=== PATIENT | female | born 1995 | race Caucasian/White ===

== ENCOUNTER 2017-02-24 11:38 | Emergency (ER) | payer SELFPAY ==
[2017-02-24 11:54] VITALS: BP 141/99
[2017-02-24 12:42] LABS: Hematocrit 39.8 % (37.0-47.0); Hemoglobin 13.5 gm/dL (12.5-16.0); Mean Cell Volume 87.5 fl (78-100); Mean Corpuscular Hemoglobin 29.7 pg (27-31); Mean Corpuscular Hgb Conc 33.9 g/dl (32-36); Mean Platelet Volume 10.7 fl (6.0-9.5); Neutrophil # 4.5 K/mm3 (1.3-6.0); Neutrophil % 68.3 % (42-75.0); Platelet Count 237 K/mm3 (150-450); Red Blood Count 4.55 M/mm3 (4.2-5.4); White Blood Count 6.5 K/mm3 (4.0-10.5)
[2017-02-24 13:10] LABS: ALT 18 U/L (19-67); AST 20 U/L (0-48); Albumin * 4.1 gm/dl (3.4-5.0); Alkaline Phosphatase * 61 U/L (50-170); Anion Gap 13.9 mmol/L (6.8-13.8); BUN/Creatinine Ratio 15.2 (9.0-21.6); Bilirubin, Total 0.8 mg/dL (0.0-1.1); Blood Urea Nitrogen 12 mg/dL (3-23); Calcium * 9.4 mg/dL (7.9-10.9); Carbon Dioxide 25.7 mmol/L (24-32.6); Chloride 101 mmol/L (97-106); Glucose * 82 mg/dL (70-110); Potassium 3.6 mmol/L (3.4-4.6); Salicylate Less than 2.8 mg/dL (2.8-20.0); Sodium 137 mmol/L (132-142); TSH * 1.596 uIU/mL (0.358-3.74); Total Protein 8.1 gm/dL (6.2-8.2)
[2017-02-24 13:14] LABS: Urine Bilirubin Negative (NEGATIVE); Urine Blood Negative /ul (NEGATIVE); Urine Ketone Large mg/dL (NEGATIVE); Urine Nitrite Negative (NEGATIVE); Urine Protein Negative (NEGATIVE); Urine Specific Gravity 1.015 SP.GR. (1.005-1.010); Urine Urobilinogen Normal (NORMAL)
[2017-02-24 13:24] LABS: Cocaine Ur Negative (NEGATIVE); Urine Appearance Clear; Urine Bacteria None Seen; Urine Barbiturate Negative (NEGATIVE); Urine Color Yellow; Urine Opiates Negative (NEGATIVE); Urine PCP Negative (NEGATIVE); Urine RBC None Seen /hpf (0-5); Urine WBC None Seen /hpf (0-5)
[2017-02-24 13:26] LABS: Urine Benzodiazepines Positive (NEGATIVE); Urine THC Positive (NEGATIVE)
--- OUTSIDE RECORDS SUMMARY | 2017-02-24 13:29 | XMS REPORT | Continuity of Care Document ---
:1995 Author Organization [facility] ([facility]) [place] [address] Phone [phone] Care Team Providers Name Role Phone Raquel Helmsan Primary Care Provider [phone] Source Comments This disclosure is being made pursuant to the Care Everywhere program, applicable federal and state laws, and may not contain all informaitonavailable regarding this patient.[facility] ([facility]) Active Allergies and Adverse Reactions No Known Allergies Current Medications No known medications Active Problems Not on file Social History Tobacco Use Types Packs/Day Years Used Date Never Smoker Smokeless Tobacco: Never Used Last Filed Vital Signs Vital Sign Reading Time Taken Blood Pressure 122/62 12/28/2012 2:45 PM CDT Pulse 92 12/28/2012 2:45 PM CDT Temperature 36.9 C (98.4 F) 12/28/2012 2:45 PM CDT Respiratory Rate 16 12/28/2012 2:45 PM CDT Height 1.669 m (5' 5.71") 12/28/2012 2:45 PM CDT Weight 64.6 kg (142 lb 6.7 oz) 12/28/2012 2:45 PM CDT Body Mass Index 23.19 12/28/2012 2:45 PM CDT Oxygen Saturation - - Plan of Care Health Maintenance Due Date Last Done Comments Hepatitis B Vaccine (1 of 3 - Primary Series) 1995 HPV Vaccine (1 of 3 - Female/Unknown 3 Dose Series) 2006 Tdap Vaccine 2006 Meningococcal Vaccine (1 of 1) 2011 Cervical Cancer Screening 2013 Lipid Disorder Screening 2013 MMR Vaccine 2013 Td Vaccine 2013 Varicella Vaccine (1 of 2 - Adult - No Evidence of 2013 Immunity) Influenza Vaccine: Seasonal (#1) 04/19/2016 Results from Last 3 Months Not on file
--- NOTE | 2017-02-24 14:40 | ERNOTE ---
Psychological HPI - General Chief Complaint: Psychiatric Problem Source: Reports: patient - Immun/Allergies/Home Medications Allergies/Adverse Reactions: Allergies No Known Allergies Allergy (Unverified 11/07/12 16:20) FROM ADMIT SHEET Home Medications: HOME MEDICATIONS Famotidine [Pepcid] 10 mg PO BID #30 tablet 11/09/12 [Last Taken Unknown] Polyethylene Glycol 3350 [Miralax] 17 gm PO DAILY #0 btl 11/09/12 [Last Taken Unknown] Sertraline HCl [Zoloft] 50 mg PO DAILY #30 tab 02/24/17 [Last Taken Unknown] - History of Present Illness Narrative: Patient presents with a long-standing history of both depression and suicidal ideations. Patient states that she's had both of these since she was approximate 15 years old, which gives her 6 years of chronic depression and chronic suicidal ideation and never having acted on it. Patient presents with similar symptoms today, what she did notice was that after having used methamphetamine for several days the symptoms appear to get worse. Patient now states that she is back to her baseline depression and suicide ideation. Time Seen by Provider: 02/24/17 12:47 - Patient's Past Medical History Patient History - Medical: Bipolar, Depression, Renal Disease, UTI'S, Other Patient History - Surgical Procedures: ENT LMP (Calendar): 02/19/16 - Family History Father Family History - Medical: Depression - Social History Living Situations: home Abuse History: No History of abuse Psych History: Hx of Depression, Hx of Bipolar Disorder Smoking Status: Current every day smoker Have you smoked in the past 12 months: Yes Do you dip or chew tobacco: No Alcohol Use: occasionally Drug Use: marijuana, meth Physical Exam - Physical Exam General Appearance: Present: wd/wn, alert, mild distress Eye Exam: Normal inspection: bilateral, PERRL: bilateral Ears, Nose, Throat: Present: normal ENT inspection, H, normal pharynx Neck: Present: normal inspection, nontender Respiratory: Present: no respiratory distress, normal breath sounds, no accessory muscle use, chest nontender, lungs clear Cardiovascular/Chest: Present: regular rate, rhythm, no murmur, normal peripheral pulses Gastrointestinal/Abdominal: Present: normal bowel sounds, nontender, nondistended, soft, no organomegaly Rectal Exam: Present: deferred Back Exam: Present: normal inspection, normal range of motion Extremity Exam: Present: normal inspection, non-tender, no edema, normal range of motion Neurological Exam: Present: alert, oriented, other - mild depression with chronic suicidal ideations Skin Exam: Present: normal color, warm/dry Lymphatic Exam: Present: no adenopathy ED Progress - Results and Orders Patient's Lab Results:: I have reviewed the patient's lab results. - Vital Signs Patient's Vital Signs:: I have reviewed the patient's vital signs. Vital Signs: Vital Signs 02/24/17 11:40 Temperature 36.7 C Pulse Rate 125 H Respiratory 14 Rate Blood Pressure 141/99 O2 Sat by Pulse 99 Oximetry - Progress/Reassessment Chief Complaint: Psychiatric Problem Plan - Plan Plan: Patient admits to being chronically depressed with chronic suicidal ideations for the last 6 years. She states this is no different now than her usual state of mind, and she agrees to take the new prescription that we are writing for her which is Zoloft 50 mg a day. She has been appointment to see Ángela Heredia on March 31 at 8:30 in the morning and she agrees to keep that appointment. She also agrees to not use methamphetamines anymore as she sees that this is causing a complication of her bipolar disorder. Departure Clinical Impression: Bipolar disease, chronic, Suicidal thoughts - Departure Disposition: Home self-care Condition: Good Instructions: Bipolar Disorder Prescriptions: Sertraline HCl [Zoloft] 50 mg PO DAILY #30 tab
== END 2017-02-24 15:20 | disposition home or self-care (01) ==
LOC: ER 11:38
DX: F31.4 Bipolar disorder, current episode depressed, severe, without psychotic features (principal); R45.851 Suicidal ideations
CPT/HCPCS: 36415; 80053; 80307; 81001; 84443; 84703; 85025; 99284; G0480; G0481